=== PATIENT | male | born 1965 | race Caucasian/White ===

== ENCOUNTER 2021-07-06 11:44 | Outpatient (REF) | payer OTHER, SELFPAY ==
[2021-07-06 12:25] LABS: COVID-19 Test Negative (Negative)
== END 2021-07-06 11:45 | disposition home or self-care (01) ==
LOC: HO.LAB 11:44
PROVIDERS: PCP Internal Medicine; Visit Provider Internal Medicine
DX: Z20.822 Contact with and (suspected) exposure to COVID-19 (principal)
CPT/HCPCS: 36415; 87635; C9803

== ENCOUNTER 2021-10-10 08:59 | Outpatient (REF) | payer OTHER, SELFPAY | END 2021-10-10 09:00 | disposition home or self-care (01) | LOC: HO.HMGCLDS 08:59 | PROVIDERS: Visit Provider Internal Medicine | DX: Z20.822 Contact with and (suspected) exposure to COVID-19 (principal) | CPT/HCPCS: C9803; U0003; U0005 ==